=== PATIENT | male | born 1945 ===

== ENCOUNTER → 2018-04-18 | Day surgery (SDC) | payer OTHER ==
[~2018-04-18] MED LIST: ATARAX25 MG PO; BUSPIRONE HCL10 MG PO; CALAN80 MG PO; HYDROCHLOROTHIA25 MG PO; IRBESARTAN150 MG PO; LANTUS SOL100 UNIT/1; PERCOCET 5-3251 EACH PO; XANAX2 MG PO
== END | disposition home or self-care (01) ==
LOC: ADM 04-15 15:00 → CIR.AMB 06:20
DX: C20 Malignant neoplasm of rectum (principal)
CPT/HCPCS: 36561; C1751